=== PATIENT | female | born 1990 | race American Indian/Alaskan Native ===

== ENCOUNTER 2021-09-24 20:43 | Emergency (ER) | payer MEDICAID ==
[2021-09-24 20:48] VITALS: BP 134/73
== END 2021-09-25 00:15 | disposition left against medical advice (07) ==
LOC: ED 20:43
DX: M79.10 Myalgia, unspecified site (principal); M79.676 Pain in unspecified toe(s); Z53.21 Procedure and treatment not carried out due to patient leaving prior to being seen by health care provider